=== PATIENT | female | born 1965 | race Caucasian/White ===

== ENCOUNTER → 2017-08-29 | Outpatient (CLI) | payer BC ==
[~2017-08-29] MED LIST: AMLO2.5T74 PO; ASPI-1471 PO; CALC1TAB32 PO; CHOL100059 PO; ESTR10TA4 VG; ESTR42.5 VG; ESTR42.59 VG; FLU150 PO; FLUC100T39 PO; FLUT16SP19 NS; LISI-374 PO; LISI20TA29 PO; MULT-865 PO; SPIR1TAB28 PO
--- NOTE | 2017-08-30 08:27 | RADIOLOGY IMAGING REPORT ---
FACILITY: [facility] - [place] PATIENT NAME: MERLY STEWART : [id number] MR: [id number] V: [id number] EXAM DATE: ORDERING PHYSICIAN: EUGENIA FRASER TECHNOLOGIST: Izzy Call PROCEDURE:BILATERAL DIGITAL SCREENING MAMMOGRAM WITH CAD ASSISTED INTERPRETATION & 3D TOMOSYNTHESIS COMPARISON:Prior mammograms 04/14/16, 03/19/15, 01/31/14, 01/11/13, 10/27/11, 10/15/10. INDICATIONS:SCREENING FINDINGS: There are bilateral subpectoral breast implants in place. There is no evidence of implant rupture or leakage. Extremely dense heterogeneous fibroglandular tissue is seen anterior to the implants. The parenchymal pattern has remained stable allowing for difference in mammographic technique & patient positioning. There is no evidence of malignant appearing mass, malignant appearing calcifications or other secondary sign of malignancy in either breast. DIAGNOSTIC CATEGORY 2--BENIGN FINDING. RECOMMENDATIONS: ROUTINE MAMMOGRAM AND CLINICAL EVALUATION. IMPRESSION: BIRADS 2: Benign finding No significant abnormality is seen. Dictated by: May Robert M.D. on 08/29/2017 at 16:32 Transcribed by: SAHIL on 08/30/2017 at 8:11 Approved by: May Robert M.D. on 08/30/2017 at 8:26 [facility]
== END ==
LOC: MAMO 00:30
PROVIDERS: ATTEND Emergency Medicine
DX: Z12.31 Encounter for screening mammogram for malignant neoplasm of breast (principal); Z98.82 Breast implant status
CPT/HCPCS: 77063; 77067

== ENCOUNTER 2018-05-25 20:00 | Emergency (ER) | payer BC ==
[~2018-05-25 20:00] MED LIST changes: -AMLO2.5T74 PO; +AMLO2.5T78 PO
--- NOTE | 2018-05-25 20:18 | ER Report ---
History and Physical Time Seen By MD: 20:12 Hx. of Stated Complaint: FELL ON ICE ELBOW LACERATION AND LOWER BACK PAIN HPI/ROS CHIEF COMPLAINT: Slip and fall on ice HISTORY OF PRESENT ILLNESS: 52-year-old female presents ambulatory to the ER complaining of low back pain after slipping and falling on the ice. She also has a tiny laceration to her left elbow. She denies head impact, neck pain, chest pain, shortness of breath. She notes 6/10 low back pain aggravated by movement and standing. She notes no radiation of the symptoms to her legs. She denies incontinence or saddle anesthesia. Patient thinks her last tetanus shots greater than 10 years. Patient shows good range of motion of her left elbow REVIEW OF SYSTEMS: Respiratory: No cough, no dyspnea. Cardiovascular: No chest pain, no palpitations. Gastrointestinal: No vomiting, no abdominal pain. Musculoskeletal: As above Allergies: Coded Allergies: Penicillins (Unverified Allergy, Intermediate, RASH, 05/25/18) rash as a teenager Sulfa (Sulfonamide Antibiotics) (Unverified Allergy, Intermediate, RASH, 05/25/18) Home Meds Active Scripts Methocarbamol (ROBAXIN-750) 750 Mg Tablet, 1 TAB PO TID PRN for muscle spasm relief, #20 Prov:CHERRY RO DO 05/25/18 Oxycodone Hcl/Acetaminophen (PERCOCET 5-325 MG TABLET) 1 Each Tablet, 1 EACH PO Q4-6H PRN for PAIN, #10 Prov:CHERRY RO DO 05/25/18 Spironolact/Hydrochlorothiazid (SPIRONOLACTONE-HCTZ 25-25 TAB) 1 Each Tablet, 1 EACH PO QAM, #90 TAB 0 Refills Please call and schedule your annual wellness exam for February 2016. Prov:EUGENIA FRASER MD 12/14/15 Estrogens, Conjugated 0.625 Mg/Ml Vag Cream (PREMARIN 0.625 MG/ML VAGINAL CR) 42.5 Gm Cream.appl, 0.5 GM VG DAILY PRN for vaginal dryness, #30 TUBE 6 Refills Prov:EUGENIA FRASER MD 02/27/15 Lisinopril (LISINOPRIL) 20 Mg Tablet, 1 MG PO QDAY, #90 TAB 3 Refills Prov:EUGENIA FRASER MD 10/23/15 Fluticasone Prop 50 Mcg Ns (FLONASE 50 MCG NS) 16 Gm [place].susp, 1 SPRAY NS QDAY, #1 INHALER 12 Refills Prov:EUGENIA FRASER MD 02/27/15 Reported Medications Calcium Carb & Cit/Vitamin D3 (CALCIUM + D3 ER TABLET) 1 Each Tablet.er, 1 TAB PO DAILY 02/27/15 Aspirin (ASPIR 81) 81 Mg Tablet.dr, 1 TAB PO QDAY, TAB 02/27/15 Multivitamin (DAILY MULTIPLE VITAMIN) 1 Each Tablet, 1 TAB PO DAILY 02/27/15 Cholecalciferol (Vitamin D3) (VITAMIN D3) 1,000 Unit Capsule, 1000 UNIT PO QDAY, CAPSULE 12/12/13 Discontinued Scripts Fluconazole (FLUCONAZOLE) 150 Mg Tab, 1 TAB PO ONCE PRN for yeast infection, #2 TAB 1 Refill Prov:EUGENIA FRASER MD 02/27/15 Past Medical/Surgical History Past Medical History Cardiovascular: Reports hx of: hypertension (Tx since son was born in , renal work-up at [place], tends to hypokalemia) Musculoskeletal: Reports hx of: other musculoskeletal hx (R thoracic ner ve pinched, tx from Dr. Reyes w/PT - resolved) Past Surgical History Gynecologic: Reports hx of: hysterectomy (1997. ovaries remain. done because of heavy bleeding. ) Reviewed Nurses Notes: Yes Old Medical Records Reviewed: Yes Smoking Status: Never Smoker Constitutional Vital Sign - Last 24 Hours 05/25/18 05/25/18 05/25/18 05/25/18 20:08 20:09 20:30 21:00 Temp 98.1 Pulse 73 70 69 Resp 12 B/P (MAP) 147/86 (106) 147/86 123/83 (96) 123/82 (96) Pulse Ox 95 94 93 O2 Delivery Room Air 05/25/18 05/25/18 21:28 21:30 Pulse 71 B/P (MAP) 124/83 (97) Pulse Ox 96 Physical Exam General Appearance: The patient is alert, has no immediate need for airway protection and no current signs of toxicity. Palpation of the head and neck reveal no tenderness or trauma Eyes: Pupils equal and round no injection. Respiratory: Chest is non tender, lungs are clear to auscultation. No chest wall tenderness Cardiac: regular rate and rhythm Gastrointestinal: Abdomen is soft and non tender, no masses, bowel sounds normal. Musculoskeletal: Neck: Neck is supple and non tender. Back: There is some tenderness to the left paraspinous musculature. There is no tenderness in the midline or the SI joints. There is no bruising franco or abrasions. There is no CVA tenderness Extremities have full range of motion and are non tender., No evidence of trauma, except a tiny left elbow laceration approximately 1 cm in length over the olecranon Skin: No rashes or lesions. DIFFERENTIAL DIAGNOSIS: After history and physical exam differential diagnosis was considered for back pain including but not limited to muscular pain, herniated disc, spine fracture, intra-abdominal causes and urinary tract infection. Additionally elbow contusion, elbow laceration Medical Decision Making EKG/Imaging Imaging X-ray: Lumbar spine 3 views was obtained. I viewed the images myself on the PACS system. My interpretation of the images is: No fracture no dislocation or malalignment. The radiologist interpretation had no clinically significant variation from this interpretation. ED Course/Re-evaluation ED Course Patient was admitted to an examination room. H&P was done. The differential diagnoses was considered. On clinical examination. Patient has moderate to severe low back pain without radiation to her lower extremities. She is a nonfocal neurologic examination. Diagnostic x-rays of the lumbar spine are performed. They're unremarkable for obvious fracture, dislocation or deformity. Patient's results are discussed with her. Patient has a tiny left elbow laceration is infiltrated with lidocaine 1% with epinephrine and repaired as noted below. Patient be discharged home on Percocet and Robaxin. She is advised to continue ibuprofen 60 mg 3 times daily. Patient advised to follow-up with primary care if unimproved in 3-5 days. Procedure: Laceration repair. Verbal consent was obtained from the patient. The 1.2 cm Laceration on the left elbow was anesthetized in the usual fashion. The wound was scrubbed, draped and explored to its base with a gloved finger. There were no deep structures involved. The wound was repaired with 5-0 Prolene 2 sutures. The wound repair was simple. The procedure was performed by myself. Wound care was discussed, suture removal in 10 days Decision to Disposition Date: May 25, 2018 Decision to Disposition Time: 20:51 Depart Departure Latest Vital Signs Vital Signs Date Time Temp Pulse Resp B/P (MAP) Pulse Ox O2 Delivery O2 Flow Rate FiO2 05/25/18 21:30 71 96 05/25/18 21:28 124/83 (97) 05/25/18 20:09 98.1 12 Room Air Impression: Primary Impression: Fall from ground level Additional Impressions: Laceration of elbow, left Back contusion Condition: Improved Disposition: HOME OR SELF-CARE New Scripts Methocarbamol (ROBAXIN-750) 750 Mg Tablet 1 TAB PO TID PRN for muscle spasm relief, #20 Prov: JIACHERRY Mirza DO 05/25/18 Oxycodone Hcl/Acetaminophen (PERCOCET 5-325 MG TABLET) 1 Each Tablet 1 EACH PO Q4-6H PRN for PAIN, #10 Prov: CHERRY RO DO 05/25/18 Patient Instructions: Contusion in Adults (ED), Laceration (ED) Additional Instructions: Take ibuprofen 200 mg 3 tablets 3 times a day with food Apply ice or heat to your back area Watch her left elbow for signs of infection. Perform daily wound care, sutures will be removed in 10 days Follow-up with primary care if unimproved in 3-5 days. Regarding her back pain Problem Qualifiers Additional Impressions: Laceration of elbow, left Encounter type: initial encounter Qualified Codes: S51.012A - Laceration without foreign body of left elbow, initial encounter Back contusion Encounter type: initial encounter Laterality: left Qualified Codes: S20.222A - Contusion of left back wall of thorax, initial encounter CHERRY RO DO May 25, 2018 20:18
[2018-05-25] MEDS ORDERED: DIPHTH/TETANUS/ACEL. PERTUSSIS IM ONLY ONE (20:20)
[2018-05-25] MEDS ORDERED: OXYC-865 PO (20:54)
[2018-05-25] MEDS ORDERED: oxyCODONE/ACETAMIN 5/325MG TH 2 TAB/BOTTLE PO ONE (20:55)
--- NOTE | 2018-05-25 21:18 | RADIOLOGY IMAGING REPORT ---
FACILITY: [facility] PATIENT NAME: Julia Lion : 1965 MR: [id number] V: [id number] EXAM DATE: ORDERING PHYSICIAN: CHERRY RO TECHNOLOGIST: Location: [facility] - [place] Patient: Julia Lion : 1965 Visit/Account:[id number] Date of Sevice: 05/25/2018 L-SPINE 2 OR 3 VIEW INDICATION: Back pain after fall. COMPARISON: None available FINDINGS: AP and lateral view the lumbar spine. There are 5 nonrib-bearing lumbar vertebral bodies. Leftward convexity. The vertebral bodies are aligned. No compression fractures, bony lesions or spon dylolysis. There is mild diffuse degenerative changes which are more prominent the L3-4 level includi ng disc space narrowing, small osteophytes and facet arthropathy. The endplates are maintained. The p edicles are well seen. Soft tissues are unremarkable. IMPRESSION: 1. No acute abnormality. 2. Mild degenerative changes and a leftward convexity. Report Dictated By: Kieran Miranda at 05/25/2018 9:11 PM Report E-Signed By: Kieran Miranda at 05/25/2018 9:13 PM WSN:[id number]
[2018-05-25] MEDS ORDERED: METH-543 PO (21:24)
[2018-05-25 21:28] VITALS: BP 124/83
== END 2018-05-25 21:38 | disposition home or self-care (01) ==
LOC: ER 20:21
DX: S51.012A Laceration without foreign body of left elbow, initial encounter (principal); S20.222A Contusion of left back wall of thorax, initial encounter; W00.0XXA Fall on same level due to ice and snow, initial encounter
CPT/HCPCS: 72100; 90471; 90715; 99283

== ENCOUNTER → 2018-12-25 | Outpatient (CLI) | payer BC ==
[~2018-12-25] MED LIST changes: +METH-543 PO; +OXYC-865 PO
--- NOTE | 2018-12-25 15:40 | RADIOLOGY IMAGING REPORT ---
FACILITY: [facility] - [place] PATIENT NAME: MERLY STEWART : [id number] MR: [id number] V: [id number] EXAM DATE: ORDERING PHYSICIAN: EUGENIA FRASER TECHNOLOGIST: Izzy Call PROCEDURE: BILATERAL DIGITAL SCREENING MAMMOGRAM WITH CAD ASSISTED INTERPRETATION & 3D TOMOSYNTHESIS REASON FOR STUDY: Screening. FAMILY HISTORY OF BREAST CANCER: None BREAST PROCEDURES/TREATMENTS: Benign lumpectomy of the Right breast & bilateral breast augmentation 2014 COMPARISON: Mammograms 08/29/17, 04/14/16, 03/19/15, 01/31/14, 01/11/13 VIEWS OBTAINED: Bilateral 2D & 3D full field CC & MLO projections with implant displacement & bilateral 2D full field CC & MLO views without implant displacement. BREAST DENSITY: The breasts are extremely dense which lowers the sensitivity of mammography. MAMMOGRAM FINDINGS: There are bilateral subpectoral breast implants in place without evidence of implant rupture or leakage. The parenchymal pattern has remained stable when allowing for difference in mammographic technique & patient positioning. DIAGNOSTIC CATEGORY 2--BENIGN FINDING. RECOMMENDATIONS: ROUTINE MAMMOGRAM AND CLINICAL EVALUATION. IMPRESSION: BIRADS 2: Benign finding. Dictated by: May Robert M.D. on 12/25/2018 at 15:18 Transcribed by: SINAN on 12/25/2018 at 15:23 Approved by: May Robert M.D. on 12/25/2018 at 15:35 [facility]
== END ==
LOC: MAMO 01:00
PROVIDERS: ATTEND Emergency Medicine
DX: Z12.31 Encounter for screening mammogram for malignant neoplasm of breast (principal); Z98.82 Breast implant status
CPT/HCPCS: 77063; 77067